=== PATIENT | female | born 1965 | race Caucasian/White ===

== ENCOUNTER → 2019-10-31 | Outpatient (CLI) | payer BC ==
[~2019-10-31] MED LIST: CHOL500015 PO; CYAN3000 PO; FURO40TA6 PO; LEVO88TA2 PO; MULT-53 PO; PANT40TA3 PO; POTA20PA31 PO; POTA20TA91 PO; SEA KELP PO; SELE200T10 PO
== END | disposition home or self-care (01) ==
LOC: CFH 10:15
PROVIDERS: ATTEND Physician Assistant Medical
DX: Z12.31 Encounter for screening mammogram for malignant neoplasm of breast (principal); N64.89 Other specified disorders of breast
CPT/HCPCS: 77067

== ENCOUNTER → 2020-11-05 | Outpatient (CLI) | payer BC | END | disposition home or self-care (01) | LOC: CFH 10:44 | PROVIDERS: ATTEND Physician Assistant Medical | DX: Z12.31 Encounter for screening mammogram for malignant neoplasm of breast (principal) | CPT/HCPCS: 77063; 77067 ==

== ENCOUNTER 2021-02-28 16:51 | Emergency (ER) | payer BC ==
[~2021-02-28] VITALS: Ht 157.5 cm; Wt 68.1 kg
--- NOTE | 2021-02-28 19:32 | NUR ---
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
[2021-02-28 19:47] LABS: BASOPHILS % (AUTO) 1 % (0-1); EOSINOPHILS % (AUTO) 3 % (1-7); LYMPHOCYTES % (AUTO) 30 % (22-44); MEAN CORPUSCULAR HEMOGLOBIN 30.3 pg (27.0-34.8); MEAN CORPUSCULAR HGB CONC 34.1 g/dL (32.4-35.8); MEAN PLATELET VOLUME 7.2 fL (7.4-10.4); MONOCYTES % (AUTO) 9 % (2-9); NEUTROPHILS % (AUTO) 57 % (42-75); PLATELET COUNT 350 x10^3/uL (130-400); RED BLOOD COUNT 4.76 x10^6/uL (3.82-5.3); RED CELL DISTRIBUTION WIDTH 14.5 % (9.6-15.2)
--- NOTE | 2021-02-28 19:51 | NUR ---
PT CAME IN CO CHEST PAIN AND SOB THAT CAME ON THIS MORNING. EKG COMPLETE. PT RESTING IN [facility] CONNECTED TO ALL MONITORING EQUIPMENT
[2021-02-28 19:56] LABS: MD NO
[2021-02-28 19:58] LABS: ALBUMIN 4.2 g/dL (3.4-5.0); ANION GAP 5 mmol/L (5-15); CALCIUM 9.3 mg/dL (8.5-10.1); CHLORIDE 107 mmol/L (98-107)
[2021-02-28 20:02] LABS: TROPONIN I < 0.015 ng/mL (0.000-0.045)
[2021-02-28 20:37] VITALS: BP 129/86
--- NOTE | 2021-02-28 20:53 | NUR ---
Task RN: discharge instructions given. All questions and concerns addressed. Patient ambulatory with a steady gait. Belongings with patient.
== END 2021-02-28 20:55 | disposition home or self-care (01) ==
LOC: ED 20:54
DX: R07.89 Other chest pain (principal); E03.9 Hypothyroidism, unspecified; R94.31 Abnormal electrocardiogram [ECG] [EKG]; Z87.891 Personal history of nicotine dependence
CPT/HCPCS: 36415; 71046; 80048; 82040; 83880; 84484; 85025; 93005; 99285